=== PATIENT | female | born 1970 | race Caucasian/White ===

== ENCOUNTER 2019-08-06 14:39 | Emergency (ER) | payer MEDICARE, MEDICAID ==
[~2019-08-06] VITALS: Ht 177.8 cm; Wt 74.0 kg
[~2019-08-06 14:39] MED LIST: ALBU18HF2 INH; ATOR40TA7 PO; BACL20TA PO; ESTR2TAB PO; FENO134C PO; FLUO40CA10 PO; GABA800T11 PO; LORA2TAB PO; MOME13HF2 INH; NORT50CA5 PO; OMEP20CA11 PO
[2019-08-06] MEDS ORDERED: normal saline 1000ML IV soln IV ONE (15:30)
[2019-08-06] MEDS ORDERED: CefTRIAXone 2gm/D5W 50ml 50 ML IV ONE (15:30)
[2019-08-06] MEDS ORDERED: ibuprofen tablet 400 MG TABLET PO ONE (15:35)
[2019-08-06 15:52] VITALS: BP 135/108
[2019-08-06 15:57] LABS: BASOPHILS % (AUTO) 0.3 % (0-1); EOSINOPHILS % (AUTO) 0.5 % (0-6); HEMOGLOBIN 12.9 g/dl (12.0-16.0); LYMPHOCYTES # (AUTO) 1.6 X10'3 (1.1-4.8); LYMPHOCYTES % (AUTO) 24.1 % (21-51); MEAN CORPUSCULAR HEMOGLOBIN 35.5 PG (27.0-31.0); MEAN CORPUSCULAR HGB CONC 33.8 g/dL (33.0-36.5); MEAN CORPUSCULAR VOLUME 104.9 FL (78-98); MEAN PLATELET VOLUME 10.1 FL (7.4-10.4); MONOCYTES # (AUTO) 0.6 X10'3 (0-0.9); MONOCYTES % (AUTO) 9.8 % (2-12); NEUTROPHILS # (AUTO) 4.2 X10'3 (1.8-7.7); NEUTROPHILS % (AUTO) 65.3 % (42-75); PLATELET COUNT 202 X10'3 (140-440); RED BLOOD COUNT 3.63 X10'6 (4.20-5.60); RED CELL DISTRIBUTION WIDTH 17.3 % (11.5-14.5); WHITE BLOOD COUNT 6.5 X10'3 (4.5-11.0)
[2019-08-06 16:19] LABS: ALANINE AMINOTRANSFERASE 17 U/L (12-78); ALBUMIN 3.2 G/DL (3.4-5.0); ALBUMIN/GLOBULIN RATIO 0.6 (1.1-1.5); ALKALINE PHOSPHATASE 102 IU/L (46-116); ANION GAP 8 (8-16); ASPARTATE AMINO TRANSFERASE 30 U/L (10-37); BILIRUBIN,TOTAL 0.5 MG/DL (0.1-1.0); BLOOD UREA NITROGEN 5 MG/DL (7-18); BUN/CREATININE RATIO 8.8 (6.6-38.0); CALCIUM 8.4 MG/DL (8.5-10.1); CHLORIDE 99 MMOL/L (99-107); CREATININE 0.57 MG/DL (0.40-0.90); GLUCOSE 101 MG/DL (70-104); POTASSIUM 3.9 MMOL/L (3.5-5.1); SODIUM 138 MMOL/L (135-145); TOTAL CARBON DIOXIDE 31.1 MMOL/L (24-32); TOTAL PROTEIN 8.3 G/DL (6.4-8.2); eGFR > 90 ML/MIN
[2019-08-06] MEDS ORDERED: AMOX-419 PO (16:23)
== END 2019-08-06 16:41 | disposition home or self-care (01) ==
LOC: ER 14:40
DX: S51.851A Open bite of right forearm, initial encounter (principal); L03.113 Cellulitis of right upper limb; E78.00 Pure hypercholesterolemia, unspecified; J45.909 Unspecified asthma, uncomplicated; J44.9 Chronic obstructive pulmonary disease, unspecified; Z98.890 Other specified postprocedural states; Z88.5 Allergy status to narcotic agent; Z79.899 Other long term (current) drug therapy; Z79.2 Long term (current) use of antibiotics; W54.0XXA Bitten by dog, initial encounter; Y93.89 Activity, other specified; Y92.89 Other specified places as the place of occurrence of the external cause; Y99.8 Other external cause status
CPT/HCPCS: 36415; 80053; 83605; 84145; 85025; 87040; 96365; 99283; J0696; J7030

== ENCOUNTER 2023-05-06 17:59 | Inpatient (IN) | payer BC, MEDICAID ==
[~2023-05-06] VITALS: Ht 177.8 cm; Wt 77.3 kg
[~2023-05-06 17:59] MED LIST changes: -ESTR2TAB PO; +ESTR2TAB50 PO; -FENO134C PO; +FENO134C21 PO; +MOME13HF12 INH; -MOME13HF2 INH; -OMEP20CA11 PO; +OMEP20CA15 PO
[2023-05-06] MEDS ORDERED: normal saline 1000ml 1,000 ML IV ONE (18:40)
[2023-05-06 18:58] LABS: URINE HCG NEGATIVE (NEG)
[2023-05-06 19:08] LABS: CLARITY,URINE CLEAR (Clear); COLOR,URINE AMBER (Yellow); GLUCOSE, URINE NEGATIVE (Neg); KETONES,URINE NEGATIVE (Neg); LEUKOCYTE ESTERASE ,URINE TRACE (Neg); NITRITES, URINE NEGATIVE (Neg); OCCULT BLOOD,URINE MODERATE (Neg); PROTEIN,URINE NEGATIVE (Neg); UROBILINOGEN,URINE 0.2 E.U/dL (0.2-1.0)
[2023-05-06 19:09] LABS: UA COLLECTION TYPE CLN CATCH MIDSTREAM
[2023-05-06 19:09] LABS: ALANINE AMINOTRANSFERASE 32 U/L (12-78); ALBUMIN 2.5 G/DL (3.4-5.0); ALKALINE PHOSPHATASE 83 IU/L (46-116); ANION GAP 9 (8-16); ASPARTATE AMINO TRANSFERASE 83 U/L (10-37); BILIRUBIN,TOTAL 5.1 MG/DL (0.1-1.0); BLOOD UREA NITROGEN 12 MG/DL (7-18); BUN/CREATININE RATIO 13.2 (10.0-20.0); CALCIUM 9.5 MG/DL (8.5-10.1); CHLORIDE 105 MMOL/L (99-107); CREATININE 0.91 MG/DL (0.40-0.90); GLUCOSE 100 MG/DL (70-104); LIPASE 292 U/L (73-393); SODIUM 140 MMOL/L (135-145); TOTAL CARBON DIOXIDE 25.6 MMOL/L (24-32); eGFR 65 ML/MIN
[2023-05-06 19:11] LABS: HEMATOCRIT 26.7 % (35.0-45.0); HEMOGLOBIN 9.4 g/dl (12.0-16.0); MEAN CORPUSCULAR HEMOGLOBIN 32.5 PG (27.0-31.0); MEAN CORPUSCULAR HGB CONC 35.1 g/dL (33.0-36.5); MEAN CORPUSCULAR VOLUME 92.5 FL (78-98); MEAN PLATELET VOLUME 11.8 FL (7.4-10.4); PLATELET COUNT 270 X10'3 (140-440); RED BLOOD COUNT 2.89 X10'6 (4.20-5.60); RED CELL DISTRIBUTION WIDTH 15.5 % (11.5-14.5); WHITE BLOOD COUNT 3.6 X10'3 (4.5-11.0)
[2023-05-06 19:13] LABS: ALBUMIN/GLOBULIN RATIO 0.4 (1.1-1.5); POTASSIUM 3.7 MMOL/L (3.5-5.1); TOTAL PROTEIN 8.2 G/DL (6.4-8.2)
[2023-05-06 19:22] LABS: WBC,URINE 0-4 /HPF (0-4)
[2023-05-06 19:23] LABS: BACTERIA,URINE FEW /HPF (Neg); MUCUS STRANDS NONE SEEN /LPF (Neg); SQUAMOUS EPITHELIAL CELL,UR MODERATE /LPF (FEW)
[2023-05-06 19:55] LABS: PLATELET ESTIMATE NORMAL; TOTAL CELLS COUNTED 100
[2023-05-06 19:56] LABS: ANISOCYTOSIS 1+; TARGET CELLS 2+
[2023-05-06 19:59] LABS: LARGE PLATELETS MODERATE
--- NOTE | 2023-05-06 20:33 | NUR ---
ULTRASOUND AT BEDSIDE
[2023-05-06] MEDS ORDERED: temazepam 15mg capsule PO PRN (21:00)
[2023-05-06] MEDS ORDERED: thiamine 100mg/ml 2ml inj. IV ONE (21:40)
[2023-05-06] MEDS ORDERED: folic acid 1mg/0.2ml inj IV ONE (21:40)
[2023-05-06] MEDS ORDERED: LORazepam 2 mg/ml vial IV ONE (21:40)
[2023-05-06] MEDS ORDERED: potassium Cl 40MEQ/1/2NS 520ml 520 ML IV PRN (23:15)
[2023-05-06] MEDS ORDERED: haloperidol lactate 5mg/ml inj IM PRN (23:15)
[2023-05-06] MEDS ORDERED: magnesium hydroxide 30ml (MOM) UD suspension PO PRN (23:15)
[2023-05-06] MEDS ORDERED: HYDROmorphone inj. 0.5 MG/0.5 ML DISP.SYRIN IV PRN (23:15)
[2023-05-06] MEDS ORDERED: haloperidol 5mg tablet PO PRN (23:15)
[2023-05-06] MEDS ORDERED: potassium Cl 20 mEq SR tablet PO PRN ×2 (23:15)
[2023-05-06] MEDS ORDERED: magnesium 4gm in 100ml NS 100 ML IV PRN (23:15)
[2023-05-06] MEDS ORDERED: bisacodyl 10mg suppository rectal RC PRN (23:15)
[2023-05-06] MEDS ORDERED: HYDROmorphone/PF 0.2 MG/ML SYRINGE IV PRN (23:15)
[2023-05-06] MEDS ORDERED: magnesium 2GM in 50ml NS 50 ML IV PRN (23:15)
[2023-05-06] MEDS ORDERED: ondansetron/PF 4mg/2ml inj IV PRN (23:15)
[2023-05-06] MEDS ORDERED: mag hydrox/Alum hydrox/simeth 30ml oral suspension PO PRN (23:15)
[2023-05-06] MEDS ORDERED: LORazepam 2 mg/ml vial IV PRN (23:15)
[2023-05-06] MEDS: normal saline 1000ml 1,000 ML IV SCH (23:23)
[2023-05-06] MEDS ORDERED: iohexol 300mg/ml 100ml inj. ONE (23:27)
--- NOTE | 2023-05-06 23:35 | NUR ---
PT PROVIDED WITH TURKEY SANDWICH AND WATER PITCHER. REGULAR DIET
[2023-05-06] MEDS ORDERED: traZODone 50mg tablet PO STA (23:56)
[2023-05-07] VITALS (7 sets, daily range): BP systolic 141–167; BP diastolic 91–100; PULSE 72–113; RESP 16–18; TEMP 97.4–98.6; O2SAT 96–98
[2023-05-07] MEDS ORDERED: VENL225T3 PO (00:26)
[2023-05-07] MEDS ORDERED: FLUT1BLS4 PO (00:26)
[2023-05-07] MEDS ORDERED: TRAZ-251 PO (00:26)
[2023-05-07] MEDS ORDERED: VENL75TA4 PO (00:26)
[2023-05-07] MEDS: normal saline 1000ml 1,000 ML IV SCH ×3 (01:36→22:12)
[2023-05-07] MEDS ORDERED: LORazepam 1 MG tablet PO PRN (03:15)
[2023-05-07 04:19] LABS: WHITE BLOOD COUNT 3.8 X10'3 (4.5-11.0)
[2023-05-07 04:21] LABS: HEMATOCRIT 26.5 % (35.0-45.0); HEMOGLOBIN 9.2 g/dl (12.0-16.0); MEAN CORPUSCULAR HEMOGLOBIN 31.8 PG (27.0-31.0); MEAN CORPUSCULAR HGB CONC 34.6 g/dL (33.0-36.5); MEAN CORPUSCULAR VOLUME 92.1 FL (78-98); MEAN PLATELET VOLUME 12.2 FL (7.4-10.4); PLATELET COUNT 280 X10'3 (140-440); RED BLOOD COUNT 2.88 X10'6 (4.20-5.60); RED CELL DISTRIBUTION WIDTH 16.7 % (11.5-14.5)
[2023-05-07 04:30] LABS: ALANINE AMINOTRANSFERASE 29 U/L (12-78); ALBUMIN 2.2 G/DL (3.4-5.0); ALKALINE PHOSPHATASE 78 IU/L (46-116); ANION GAP 10 (8-16); ASPARTATE AMINO TRANSFERASE 80 U/L (10-37); BILIRUBIN,TOTAL 5.3 MG/DL (0.1-1.0); BLOOD UREA NITROGEN 10 MG/DL (7-18); BUN/CREATININE RATIO 14.1 (10.0-20.0); CALCIUM 9.2 MG/DL (8.5-10.1); CHLORIDE 105 MMOL/L (99-107); CREATININE 0.71 MG/DL (0.40-0.90); GLUCOSE 90 MG/DL (70-104); MAGNESIUM 1.3 MG/DL (1.5-2.4); SODIUM 139 MMOL/L (135-145); TOTAL CARBON DIOXIDE 24.1 MMOL/L (24-32); eGFR 87 ML/MIN
[2023-05-07 04:34] LABS: ALBUMIN/GLOBULIN RATIO 0.4 (1.1-1.5); POTASSIUM 3.7 MMOL/L (3.5-5.1); TOTAL PROTEIN 7.8 G/DL (6.4-8.2)
[2023-05-07 06:24] LABS: ANISOCYTOSIS 1+; PLATELET ESTIMATE NORMAL; TARGET CELLS 2+; TOTAL CELLS COUNTED 100
--- NOTE | 2023-05-07 06:26 | NUR ---
Problems reprioritized. Patient report given, questions answered & plan of care reviewed with ORM Oneill.
--- NOTE | 2023-05-07 07:20 | NUR ---
Patient in room [facility] 4023B. I have received report from ROM GUAN and had the opportunity to ask questions and assume patient care.
[2023-05-07] MEDS ORDERED: venlafaxine 37.5mg tablet PO SCH (08:00)
[2023-05-07] MEDS: K and/or MAG REPLACEMENT MC SCH ×2 (08:00→20:00)
[2023-05-07] MEDS: heparin, porcine 5000 units/ml vial SQ SCH ×2 (08:01→20:19)
[2023-05-07] MEDS: fenofibrate 145mg tablet PO SCH (08:02)
[2023-05-07] MEDS: pantoprazole 40mg Tablet.DR PO SCH ×3 (08:02→20:17)
[2023-05-07] MEDS: docusate sod 100mg capsule PO SCH ×2 (08:02→20:17)
[2023-05-07] MEDS: multivitamins, therapeutics tablet PO SCH (08:02)
[2023-05-07] MEDS: magnesium Cl slow-release 64mg tablet PO PRN (12:28)
--- NOTE | 2023-05-07 13:29 | NUR ---
Malnutrition Consult: Pt admit DEX malaise, acute hepatitis, chronic etoh abuse, KEVIN, and painless jaundice per EMR. Pt reports 14-23 pounds wt loss and decreased intake HIGH TENSION TESTER w/ hx nausea 1 week HIGH TENSION TESTER per EMR. Pt seen by RD at bedside reports UBW 185 pounds ~1.5 months ago w/ decreased intake from lacks of appetite and nausea at time. Pt reports has been able to tolerate liquid kcals enjoys milk also has tolerated nauruan food and burritos. Pt endorses poor appetite w/ some abdominal discomfort this admit refused breakfast this AM though did drink milk; is agreeable to chocolate Ensure Enlive TIDWM until appetite improves-MD notified. Pt requests two seasoning packets TIDWM since food is "bland" also influencing intake; dietary notified. Pt appears WD/WN during RD visit and in ER note w/ mild weakness, no edema/wounds, pending scaled wt this admit w/ last scaled wt chair scale 74kg 2018 in EMR. Receiving routine thiamine, folic acid, and MVI for etoh hx. Pt is at risk for malnutrition if decreased intake persists though at this time lacks minimum malnutrition criteria. Will monitor for further malnutrition criteria and nutrition intervention needs this admit. Addendum: 05/07/23 at [address] Amended: Links added. Addendum: 05/07/23 at [address] Rec: 1. continue regular diet; encourage PO 2. chocolate Ensure Enlive TIDWM; pending physician verification in EMR 3. routine thiamine, folic acid, and MVI for etoh hx
[2023-05-07] MEDS: oxyCODONE IR 5mg (immed. release) tablet PO PRN (15:59)
[2023-05-07] MEDS: ondansetron 4mg rapidly disintigrating tab PO PRN (16:02)
[2023-05-07] MEDS: LORazepam 1 MG tablet PO PRN (17:48)
[2023-05-07] MEDS: lactose-reduced food (Ensure Enlive) - 237ml bottle PO SCH (18:00)
--- NOTE | 2023-05-07 18:32 | NUR ---
Problems reprioritized. Patient report given, questions answered & plan of care reviewed with STEPHANY CABRERA.
[2023-05-07] MEDS ORDERED: megestrol acetate 20mg tablet PO SCH (20:00)
[2023-05-07] MEDS: traZODone 50mg tablet PO SCH (20:17)
--- NOTE | 2023-05-07 20:45 | NUR ---
PAGER ID: [phone] MESSAGE: pt [id number] Cristianpilyrobert has orders for effexor 225mg+75mg at bedtime. pt only wants to take 75mg. can i have an order for the 75mg at bedtime please? [phone]
[2023-05-08] VITALS (9 sets, daily range): BP systolic 130–166; BP diastolic 62–99; PULSE 71–91; RESP 16–18; TEMP 98–98.5; O2SAT 96–100
[2023-05-08] MEDS: magnesium Cl slow-release 64mg tablet PO PRN ×3 (00:46→17:19)
[2023-05-08] MEDS: albuterol 2.5 MG/3 ML nebule NEB SCH ×3 (02:30→20:17)
[2023-05-08 06:19] LABS: HEMOGLOBIN 9.5 g/dl (12.0-16.0); WHITE BLOOD COUNT 4.1 X10'3 (4.5-11.0)
[2023-05-08 06:22] LABS: HEMATOCRIT 27.3 % (35.0-45.0); MEAN CORPUSCULAR HEMOGLOBIN 32.5 PG (27.0-31.0); MEAN CORPUSCULAR HGB CONC 34.8 g/dL (33.0-36.5); MEAN CORPUSCULAR VOLUME 93.5 FL (78-98); MEAN PLATELET VOLUME 12.9 FL (7.4-10.4); PLATELET COUNT 259 X10'3 (140-440); RED BLOOD COUNT 2.92 X10'6 (4.20-5.60); RED CELL DISTRIBUTION WIDTH 17.6 % (11.5-14.5)
--- NOTE | 2023-05-08 06:32 | NUR ---
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
--- NOTE | 2023-05-08 06:35 | NUR ---
Problems reprioritized. Patient report given, questions answered & plan of care reviewed with SWAPNIL james.
[2023-05-08 06:36] LABS: ALANINE AMINOTRANSFERASE 30 U/L (12-78); ALKALINE PHOSPHATASE 79 IU/L (46-116); ANION GAP 10 (8-16); ASPARTATE AMINO TRANSFERASE 79 U/L (10-37); BILIRUBIN,TOTAL 6.3 MG/DL (0.1-1.0); BLOOD UREA NITROGEN 13 MG/DL (7-18); CALCIUM 8.5 MG/DL (8.5-10.1); CHLORIDE 104 MMOL/L (99-107); CREATININE 0.81 MG/DL (0.40-0.90); GLUCOSE 84 MG/DL (70-104); MAGNESIUM 1.1 MG/DL (1.5-2.4); SODIUM 137 MMOL/L (135-145); TOTAL CARBON DIOXIDE 22.9 MMOL/L (24-32); eGFR 75 ML/MIN
[2023-05-08 06:45] LABS: ALBUMIN/GLOBULIN RATIO 0.4 (1.1-1.5); POTASSIUM 3.6 MMOL/L (3.5-5.1); TOTAL PROTEIN 7.3 G/DL (6.4-8.2)
--- NOTE | 2023-05-08 06:45 | NUR ---
Problems reprioritized. Patient report given, questions answered & plan of care reviewed from ROM Rodríguez.
[2023-05-08] MEDS: K and/or MAG REPLACEMENT MC SCH ×2 (08:00→19:34)
[2023-05-08] MEDS: lactose-reduced food (Ensure Enlive) - 237ml bottle PO SCH ×3 (08:00→18:00)
[2023-05-08] MEDS: normal saline 1000ml 1,000 ML IV SCH ×2 (08:01→21:26)
[2023-05-08 08:20] LABS: ANISOCYTOSIS 1+; GIANT PLATELET FEW; LARGE PLATELETS MODERATE; PLATELET ESTIMATE NORMAL; TOTAL CELLS COUNTED 100
[2023-05-08] MEDS: fenofibrate 145mg tablet PO SCH (08:55)
[2023-05-08] MEDS: LORazepam 1 MG tablet PO PRN ×3 (08:56→19:30)
[2023-05-08] MEDS: multivitamins, therapeutics tablet PO SCH (08:56)
[2023-05-08] MEDS: venlafaxine 37.5mg tablet PO SCH ×3 (08:56→20:21)
[2023-05-08] MEDS: docusate sod 100mg capsule PO SCH ×2 (08:56→19:30)
[2023-05-08] MEDS: heparin, porcine 5000 units/ml vial SQ SCH ×2 (08:57→19:30)
[2023-05-08] MEDS: pantoprazole 40mg Tablet.DR PO SCH ×2 (08:57→19:29)
[2023-05-08] MEDS: oxyCODONE IR 5mg (immed. release) tablet PO PRN ×2 (10:46→17:10)
--- NOTE | 2023-05-08 11:59 | NUR ---
Received order for consult. Met with patient for alcohol use and to see if patient was interested in resources for treatment options. Patient is interested. I talked to patient about medication to help with cravings. I gave her [employer] card for that. I discussed with patient about getting a sponsor and going to meetings. I gave patient a list of resources and my card to call me with any questions.
[2023-05-08] MEDS ORDERED: dronabinol 2.5mg capsule PO SCH (13:25)
[2023-05-08] MEDS ORDERED: LORA-268 PO (15:01)
[2023-05-08] MEDS: ondansetron 4mg rapidly disintigrating tab PO PRN (17:20)
--- NOTE | 2023-05-08 18:00 | NUR ---
I have reviewed and agree with interventions, assessments,and documentation by Rosenda Ramirez LVN.
--- NOTE | 2023-05-08 19:07 | NUR ---
Problems reprioritized. Patient report given, questions answered & plan of care reviewed with LVN. JONES Hutton at this time.
[2023-05-08] MEDS: traZODone 50mg tablet PO SCH (20:12)
[2023-05-08] MEDS: dronabinol 2.5mg capsule PO SCH (21:22)
[2023-05-09] VITALS (10 sets, daily range): BP systolic 131–185; BP diastolic 84–104; PULSE 61–120; RESP 15–18; TEMP 98–99.3; O2SAT 97–99
[2023-05-09 06:10] LABS: HEMATOCRIT 27.1 % (35.0-45.0); HEMOGLOBIN 9.3 g/dl (12.0-16.0); MEAN CORPUSCULAR HGB CONC 34.1 g/dL (33.0-36.5)
[2023-05-09 06:13] LABS: MEAN CORPUSCULAR HEMOGLOBIN 32.2 PG (27.0-31.0); MEAN CORPUSCULAR VOLUME 94.2 FL (78-98); MEAN PLATELET VOLUME 12.5 FL (7.4-10.4); PLATELET COUNT 252 X10'3 (140-440); RED BLOOD COUNT 2.88 X10'6 (4.20-5.60); WHITE BLOOD COUNT 3.8 X10'3 (4.5-11.0)
--- NOTE | 2023-05-09 06:24 | NUR ---
Problems reprioritized. Patient report given, questions answered & plan of care reviewed with AINSLEY CUETO.
[2023-05-09 06:28] LABS: ALANINE AMINOTRANSFERASE 32 U/L (12-78); ALBUMIN 2.1 G/DL (3.4-5.0); ALKALINE PHOSPHATASE 72 IU/L (46-116); ANION GAP 10 (8-16); ASPARTATE AMINO TRANSFERASE 77 U/L (10-37); BILIRUBIN,TOTAL 5.9 MG/DL (0.1-1.0); BLOOD UREA NITROGEN 11 MG/DL (7-18); BUN/CREATININE RATIO 12.6 (10.0-20.0); CALCIUM 8.8 MG/DL (8.5-10.1); CHLORIDE 107 MMOL/L (99-107); CREATININE 0.87 MG/DL (0.40-0.90); GLUCOSE 86 MG/DL (70-104); MAGNESIUM 1.2 MG/DL (1.5-2.4); SODIUM 140 MMOL/L (135-145); TOTAL CARBON DIOXIDE 22.9 MMOL/L (24-32); eGFR 69 ML/MIN
[2023-05-09 06:30] LABS: ALBUMIN/GLOBULIN RATIO 0.4 (1.1-1.5); POTASSIUM 3.9 MMOL/L (3.5-5.1); TOTAL PROTEIN 7.1 G/DL (6.4-8.2)
--- NOTE | 2023-05-09 06:35 | NUR ---
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
[2023-05-09 06:59] LABS: TOTAL CELLS COUNTED 100
[2023-05-09 07:00] LABS: ANISOCYTOSIS 2+; LARGE PLATELETS FEW; PLATELET ESTIMATE NORMAL
[2023-05-09 07:01] LABS: STOMATOCYTES FEW; TARGET CELLS 1+
[2023-05-09] MEDS: pantoprazole 40mg Tablet.DR PO SCH ×2 (07:48→20:21)
[2023-05-09] MEDS: venlafaxine 37.5mg tablet PO SCH ×2 (07:48→20:21)
[2023-05-09] MEDS: docusate sod 100mg capsule PO SCH ×2 (07:48→20:21)
[2023-05-09] MEDS: fenofibrate 145mg tablet PO SCH (07:48)
[2023-05-09] MEDS: dronabinol 2.5mg capsule PO SCH ×2 (07:48→22:46)
[2023-05-09] MEDS: heparin, porcine 5000 units/ml vial SQ SCH ×2 (07:49→20:21)
[2023-05-09] MEDS: multivitamins, therapeutics tablet PO SCH (07:49)
[2023-05-09] MEDS: magnesium Cl slow-release 64mg tablet PO PRN (07:49)
[2023-05-09] MEDS: K and/or MAG REPLACEMENT MC SCH ×2 (07:50→20:00)
[2023-05-09] MEDS: lactose-reduced food (Ensure Enlive) - 237ml bottle PO SCH ×3 (08:00→18:20)
[2023-05-09] MEDS: albuterol 2.5 MG/3 ML nebule NEB SCH ×2 (08:03→20:37)
[2023-05-09] MEDS: LORazepam 1 MG tablet PO PRN ×3 (11:15→21:57)
[2023-05-09] MEDS: normal saline 1000ml 1,000 ML IV SCH ×2 (11:22→21:15)
[2023-05-09] MEDS: oxyCODONE IR 5mg (immed. release) tablet PO PRN ×2 (12:12→23:21)
--- NOTE | 2023-05-09 18:56 | NUR ---
Gave report to January
[2023-05-09 19:08] LABS: HBSAG SCREEN Negative (Negative); HEP A AB, IGM Negative (Negative); HEPATITIS C VIRUS ANTIBODY Non Reactive (Non Reactive)
[2023-05-09] MEDS: traZODone 50mg tablet PO SCH (20:21)
[2023-05-10 06:09] LABS: ALANINE AMINOTRANSFERASE 41 U/L (12-78); ALBUMIN 2.4 G/DL (3.4-5.0); ALKALINE PHOSPHATASE 83 IU/L (46-116); ANION GAP 13 (8-16); ASPARTATE AMINO TRANSFERASE 86 U/L (10-37); BILIRUBIN,TOTAL 6.9 MG/DL (0.1-1.0); BLOOD UREA NITROGEN 15 MG/DL (7-18); BUN/CREATININE RATIO 18.3 (10.0-20.0); CALCIUM 9.2 MG/DL (8.5-10.1); CHLORIDE 103 MMOL/L (99-107); CREATININE 0.82 MG/DL (0.40-0.90); GLUCOSE 90 MG/DL (70-104); MAGNESIUM 1.3 MG/DL (1.5-2.4); SODIUM 137 MMOL/L (135-145); TOTAL CARBON DIOXIDE 21.3 MMOL/L (24-32); eGFR 73 ML/MIN
[2023-05-10 06:13] LABS: HEMOGLOBIN 10.7 g/dl (12.0-16.0); MEAN PLATELET VOLUME 13.1 FL (7.4-10.4); PLATELET COUNT 270 X10'3 (140-440)
[2023-05-10 06:17] LABS: MEAN CORPUSCULAR HEMOGLOBIN 32.7 PG (27.0-31.0); MEAN CORPUSCULAR HGB CONC 34.5 g/dL (33.0-36.5); MEAN CORPUSCULAR VOLUME 94.8 FL (78-98); RED BLOOD COUNT 3.27 X10'6 (4.20-5.60); RED CELL DISTRIBUTION WIDTH 19.7 % (11.5-14.5); WHITE BLOOD COUNT 5.4 X10'3 (4.5-11.0)
[2023-05-10 06:39] LABS: ALBUMIN/GLOBULIN RATIO 0.4 (1.1-1.5); POTASSIUM 3.7 MMOL/L (3.5-5.1); TOTAL PROTEIN 8.2 G/DL (6.4-8.2)
[2023-05-10 08:09] LABS: NUCLEATED RED BLOOD CELLS 1 /100WBC (0-0); TOTAL CELLS COUNTED 100
[2023-05-10 08:10] LABS: ANISOCYTOSIS 2+; PLATELET ESTIMATE NORMAL
[2023-05-10 08:11] LABS: TARGET CELLS 2+
[2023-05-10 08:12] LABS: LARGE PLATELETS FEW; STOMATOCYTES 1+
[2023-05-10] MEDS: albuterol 2.5 MG/3 ML nebule NEB SCH (09:00)
[2023-05-10] MEDS ORDERED: magnesium oxide 400mg tablet PO ONE (09:15)
[2023-05-10] MEDS ORDERED: MULT-25 PO (09:17)
[2023-05-10] MEDS ORDERED: FOLI1TAB27 PO (09:17)
[2023-05-10] MEDS: fenofibrate 145mg tablet PO SCH (09:35)
[2023-05-10] MEDS: pantoprazole 40mg Tablet.DR PO SCH (09:35)
[2023-05-10] MEDS: multivitamins, therapeutics tablet PO SCH (09:35)
[2023-05-10] MEDS: docusate sod 100mg capsule PO SCH (09:36)
[2023-05-11] MEDS ORDERED: folic acid 1mg tablet PO SCH (08:00)
[2023-05-11] MEDS ORDERED: thiamine 100mg tablet PO SCH (08:00)
== END 2023-05-10 10:30 | disposition home or self-care (01) | DRG 432 ==
LOC: ER 18:00 → ED HOLD 23:20 → ORTHO 4S 05-07 01:26
PROVIDERS: ADMIT Family Medicine; ATTEND Family Medicine
PROC: BW211ZZ Computerized Tomography (CT Scan) of Abdomen and Pelvis using Low Osmolar Contrast (ICD-10-PCS; principal; 2023-05-06)
DX: K70.10 Alcoholic hepatitis without ascites (principal); K72.00 Acute and subacute hepatic failure without coma; F10.239 Alcohol dependence with withdrawal, unspecified; K76.0 Fatty (change of) liver, not elsewhere classified; E78.00 Pure hypercholesterolemia, unspecified; F41.1 Generalized anxiety disorder; Z60.2 Problems related to living alone; F17.210 Nicotine dependence, cigarettes, uncomplicated; G89.4 Chronic pain syndrome; F31.9 Bipolar disorder, unspecified; D63.8 Anemia in other chronic diseases classified elsewhere; J44.9 Chronic obstructive pulmonary disease, unspecified; Z56.0 Unemployment, unspecified; Z90.710 Acquired absence of both cervix and uterus; Z88.5 Allergy status to narcotic agent; Z88.2 Allergy status to sulfonamides; Z88.8 Allergy status to other drugs, medicaments and biological substances; Z79.899 Other long term (current) drug therapy; Z71.6 Tobacco abuse counseling; Z71.41 Alcohol abuse counseling and surveillance of alcoholic
CPT/HCPCS: 36415; 74178; 76700; 80053; 80074; 81001; 81025; 82948; 83690; 83735; 85007; 85025; 85610; 87081; 87088; 94640; 94760; 99285; A6258; G0378; J1644; J2060; J3411; J3490; J7030; Q0167; Q9967